=== PATIENT | female | born 1990 | race Two or more races ===

== ENCOUNTER 2019-04-04 13:20 | Emergency (ER) | payer SELFPAY ==
[~2019-04-04] VITALS: Ht 172.7 cm; Wt 181.4 kg
[~2019-04-04 13:20] MED LIST: GLYB2.5T8 PO; INSUINJ2 SC; PREN-129
[2019-04-04] MEDS ORDERED: amLODIPine BESYLATE 5 MG TAB PO ONE (13:45)
[2019-04-04 14:51] VITALS: BP 157/97
[2019-04-04] MEDS ORDERED: cefTRIAXone SOD 1,000 MG VL IM ONE (15:15)
== END 2019-04-04 15:27 | disposition home or self-care (01) ==
LOC: ER 13:20
DX: S00.86XA Insect bite (nonvenomous) of other part of head, initial encounter (principal); I10 Essential (primary) hypertension; Z88.0 Allergy status to penicillin; W57.XXXA Bitten or stung by nonvenomous insect and other nonvenomous arthropods, initial encounter; Y93.89 Activity, other specified; Y92.89 Other specified places as the place of occurrence of the external cause; Y99.8 Other external cause status
CPT/HCPCS: 96372; 99283; J0696